=== PATIENT | female | born 1990 | race Caucasian/White ===

== ENCOUNTER 2020-05-10 09:15 | Emergency (ER) | payer OTHER ==
[~2020-05-10 09:15] MED LIST: COLACE 100MG C100 MG PO; FLEXERIL 10 MG10 MG PO; LODINE CAP 300300 MG PO; NORFLEX 100 MG100 MG PO; TORADOL 10 MG T10 MG PO
[2020-05-10] MEDS ORDERED: NAPROSYN500 MG PO (10:58)
== END 2020-05-10 11:15 | disposition home or self-care (01) ==
LOC: ER1 09:15
DX: M25.562 Pain in left knee (principal); E03.9 Hypothyroidism, unspecified; F17.210 Nicotine dependence, cigarettes, uncomplicated; Z88.0 Allergy status to penicillin; Z88.8 Allergy status to other drugs, medicaments and biological substances
CPT/HCPCS: 73564; 96372; 99283; J1885